=== PATIENT | male | born 1950 ===

== ENCOUNTER 2023-06-29 05:14 | Day surgery (SDC) | payer OTHER, MEDICARE ==
[2023-06-24 14:59] VITALS: BMI 26.2
[2023-06-29] MEDS ORDERED: DEXTROSE 5%-0.45% SALINE 1,000 ML IV SCH (11:30)
[2023-06-29] MEDS ORDERED: FENTANYL CITRATE/PF 50 MCG/ML VIAL ONE ×2 (12:01→13:31)
[2023-06-29] MEDS ORDERED: MIDAZOLAM HCL 2 MG/2 ML SINGLE DOSE VIAL ONE (12:01)
[2023-06-29] MEDS ORDERED: ONDANSETRON 4 MG/2 ML VIAL ONE (12:01)
[2023-06-29] MEDS ORDERED: PROPOFOL 40 ML ONE (12:13)
[2023-06-29] MEDS: ceFAZolin SODIUM 1 GM VIAL IVPB ONE (12:20)
[2023-06-29] MEDS ORDERED: ONDANSETRON 4 MG/2 ML VIAL IVPUSH PRN (13:30)
[2023-06-29] MEDS: ACETAMINOPHEN 1000 MG/100 ML BAG IVPB ONE (13:35)
[2023-06-29] MEDS: ACETAMINOPHEN INJECTION 100 ML IVPB ONE (13:35)
[2023-06-29 14:53] VITALS: RESP 18
[2023-06-29 17:30] VITALS: BP 116/72; PULSE 74; TEMP 98
== END 2023-06-29 16:10 | disposition home or self-care (01) ==
LOC: JASU-SURG 05:14
PROVIDERS: ATTEND Urology
PROC: 0WHR8YZ Insertion of Other Device into Genitourinary Tract, Via Natural or Artificial Opening Endoscopic (ICD-10-PCS; principal; 2023-06-29 11:30)
PROC: BT1FYZZ Fluoroscopy of Left Kidney, Ureter and Bladder using Other Contrast (ICD-10-PCS; 2023-06-29 11:30)
DX: C64.2 Malignant neoplasm of left kidney, except renal pelvis (principal)
CPT/HCPCS: 76000-TC-FY; 88108; 88305-TC; 94760; C1758; C2617; J0131